=== PATIENT | male | born 1975 | race Caucasian/White ===

== ENCOUNTER 2025-01-25 14:21 | Emergency (ER) | payer OTHER ==
[~2025-01-25] VITALS: Ht 177.8 cm; Wt 97.6 kg
[2025-01-25 14:55] LABS: BASOPHILS 1.3 % (0.2-1.2); EOSINOPHILS 1.1 % (0.8-7.0); LYMPHOCYTES 28.6 % (21.8-53.1); MCH 32.9 PG (25.7-32.2); MCHC 35.0 g/dL (32.3-36.5); MCV 93.8 fL (79.0-92.2); MONOCYTES 11.5 % (5.3-12.2); NEUTROPHILS 57.4 % (34.0-67.9); RBC 4.87 M/uL (4.63-6.08)
[2025-01-25 15:13] LABS: ALT (SGPT) 56.0 U/L (14-59); AST (SGOT) 38.0 U/L (15-37); GLOMERULAR FILTRATION RATE,EST 105.0 mL/min (>60); PROTEIN, TOTAL 8.4 g/dL (6.4-8.2); UREA NITROGEN 9.0 mg/dL (7-18)
[2025-01-25 16:34] VITALS: BP 153/108
[2025-01-25] MEDS ORDERED: NORVASC5 MG PO (16:36)
--- NOTE | 2025-01-26 14:36 | EKG ---
[facility] [address] [place], [place] [address] Signed Normal sinus rhythm Normal ECG No previous ECGs available Confirmed by ALETHA PIZANO MD ([id number]) on 01/26/2025 2:36:32 PM Electronically Signed By: ALETHA PIZANO 01/26/25 1436 PATIENT NAME: ALINE MACDONALDMOND Electrocardiogram DATE OF : 77 PHYSICIAN: ALETHA PIZANO REPORT #: [id number] REPORT IS CONFIDENTIAL AND NOT TO BE RELEASED WITHOUT AUTHORIZATION
== END 2025-01-25 16:43 | disposition home or self-care (01) ==
LOC: ED 14:21
PROVIDERS: Emergency Medicine
DX: R00.2 Palpitations (principal); R03.0 Elevated blood-pressure reading, without diagnosis of hypertension
CPT/HCPCS: 36415; 80053; 84484; 85025; 93005; 93010; 99285